=== PATIENT | female | born 1950 | race Caucasian/White ===

== ENCOUNTER → 2018-08-25 20:55 | Outpatient (CLI) | payer MEDICARE ==
[2013-12-17 07:35] VITALS: BMI 37.5
[~2018-08-25 20:55] MED LIST: AMBIEN10 MG PO; ASPIRIN81 MG PO; CO Q-1030 MG PO; HYZAAR 50-12.51 TAB PO; INDERAL 40 MG T40 MG PO; LIPITOR40 MG PO; MYSOLINE 50 MG50 MG PO; POTASSIUM99 M1 PO; PRILOSEC20 MG PO; PROZAC20 MG PO; VITAMIN A10000 UNIT
== END | disposition home or self-care (01) ==
LOC: D.MAMMO 13:30
DX: Z12.31 Encounter for screening mammogram for malignant neoplasm of breast (principal)